=== PATIENT | female | born 1930 | race Caucasian/White ===

== ENCOUNTER 2016-10-26 15:12 | Emergency (ER) | payer MEDICARE, OTHER ==
--- NOTE | ~2016-10-26 | CT4 ---
[facility] A Service of [facility] RADIOLOGY TEXT RESULTS PATIENT: DESI DEVLIN LOCATION: SED : 32 UNIT #: [id number] AGE: [address]: Dalton Chaudhry MD SEX: F ORDER DR: [id number] [address] [address] [id number] E MR#: [id number] Acc #: [id number] NAME: DEIS DEVLIN : 1930 SEX: F STUDY DATE/TIME: 10/26/2016 16:51 UNIT: SED ROOM: STUDY DESCRIPTION: CT Abd and Pelv Wo Cont Attending Physician: Dalton Chaudhry M.D. Ordering Physician: Dalton Chaudhry M.D. Primary Care Physician: Myron Thorpe M.D. MEDICAL IMAGING REPORT This report is preliminary unless electronic signature is present. EXAM CT abdomen and pelvis without contrast HISTORY Back pain and low abdomen pain today after lifting injury. TECHNIQUE This CT exam was performed with one or more of the following radiation dose reduction techniques: automatic exposure control, adjustment of mA and/or kV according to patient size, and iterative reconstruction. FINDINGS CT abdomen: The liver, gallbladder, spleen, pancreas, kidneys, and adrenal glands are unremarkable. No renal calculi. No hydronephrosis. No bowel dilatation. No ascites or adenopathy. Mild chronic compression fractures of the superior endplates of T12 and moderate compression fracture of the superior endplate of L3 are stable compared to CT 05/17/2010. Mild compression fracture of the superior endplate of L2 is of uncertain age. Mild chronic compression fracture of the superior endplate of L4 is unchanged. Normal caliber abdominal aorta. CT pelvis: Old healed fractures right pubic bone and right superior inferior pubic rami. The uterus and adnexa are unremarkable. Small rectocele. IMPRESSION 1. Mild compression fracture of the superior endplate of L2 is of uncertain age and this could be a recent fracture. There are mild chronic compression fractures of the superior plates of T12 and L4 and moderate chronic compression fracture of the superior endplate of [facility] A Service of [facility] & [facility] RADIOLOGY TEXT RESULTS PATIENT: DESI DEVLIN LOCATION: SED : 32 UNIT #: [id number] AGE: [address]: Dalton Chaudhry MD SEX: F ORDER DR: [id number]. 2. No free fluid or inflammatory stranding in the abdomen or pelvis. 3. Old healed fracture deformities right pubic bone and right superior and inferior pubic rami. Dictated by... Chetan Remy M.D. THIS IS AN ELECTRONICALLY VERIFIED REPORT Chetan Remy M.D. at 10/26/2016 11:13 PM DFL/to TD: 10/26/2016 21:15 JOB #: [id number] MEDICAL IMAGING REPORT Page 1 of 1
[~2016-10-26 15:12] MED LIST: ADVAIR 250-501 EAC1; AIRGO ROLLING W1 PKT MC; ALLEGRA ALLERG180 MG PO; ASPIRIN PO; AUGMENTIN PO; CALTRATE 600+D PO; CENTRUM SILVER PO; COMBIVENT U/D3 ML; COREG PO; DARVOCET-N 1001 TAB PO; EYE DROPS; GABAPENTIN300 MG; HYDROCHLOROTH12.5 M1; HYDROXYZINE HCL25 M1; INDOCIN SR75 MG PO; LEVAQUIN PO; LEVO-T25 MCG; LOPRESSOR PO; METFORMIN HCL500 M1; MIRTAZAPINE45 M1; MOTRIN400 MG PO; MULTI VITAMIN1 EACH PO; MULTI-VIT/MIN P1 TAB PO; OCEAN45 ML; OYSTER CALCIUM500 MG; PRAVACHOL; PRESERVISION A1 EAC3 PO; PREVACID N1 COMB.PKG PO; PREVACID PO; PRILOSEC PO; PRILOSEC10 M1; PRILOSEC20 MG PO; PROBIOTIC1 EAC1; PROTONIX PO; RISPERDAL3 MG; SERTRALINE HCL50 MG; TOPROL XL PO; ULTRAM PO; VITAMINS A & D1 EACH
[2016-10-26 16:28] LABS: URINE SOURCE CLEAN CATCH
[2016-10-26 16:30] LABS: BASOPHIL% 0.6 % (0-2.5); EOSINOPHIL% 0.4 % (0.0-7.0); HEMATOCRIT 43.7 % (35.0-45.0); HEMOGLOBIN 14.7 gm/dL (12.0-16.0); LYMPHOCYTE# 0.6 X10e3 (1.0-3.5); LYMPHOCYTE% 8.7 % (17.0-45.0); MEAN CELL VOLUME 91.8 FL (83-96); MEAN CORPUSCULAR HEMOGLOBIN 30.8 PG (28-34); MEAN CORPUSCULAR HGB CONC 33.6 g/dL (30-36); MEAN PLATELET VOLUME 7.7 FL (6.5-11.5); MONOCYTE# 0.4 X10e3 (0-1.0); NEUTROPHIL% 84.3 % (40-75); PLATELET COUNT 144 X10e3 (140-420); RED BLOOD COUNT 4.76 X10e (3.90-5.30); WHITE BLOOD COUNT 7.1 X10e3 (4.0-10.5)
[2016-10-26 16:32] LABS: URINE APPEARANCE CLEAR; URINE BILIRUBIN NEG (NEG); URINE BLOOD NEG (NEG); URINE COLOR YELLOW; URINE GLUCOSE NEG (NORM); URINE KETONE NEG (NEG); URINE LEUKOCYTE ESTERASE NEG (NEG); URINE NITRATE NEG (NEG); URINE PROTEIN NEG (NEG)
[2016-10-26 16:42] LABS: MICRO INDICATED? NO
[2016-10-26 16:44] LABS: DIFF IND NO
[2016-10-26 17:23] LABS: ALBUMIN SERUM 4.3 g/dL (3.5-5.0); BILIRUBIN, DIRECT 0.1 mg/dL (0.0-0.2); BILIRUBIN,INDIRECT 0.4 mg/dL (0.0-0.9); BILIRUBIN,TOTAL 0.5 mg/dL (0.2-2.0); BUN/CREATININE RATIO 27.14; CREATININE SERUM 0.7 mg/dL (0.6-1.4); GLOM FILT RATE Estimated 80.1 mL/min (>60); POTASSIUM 3.8 mmol/L (3.5-5.1); PROTEIN TOTAL SERUM 7.5 g/dL (6.0-8.3)
== END 2016-10-26 17:44 | disposition home or self-care (01) ==
LOC: SED 15:12
PROVIDERS: Emergency Medicine
DX: S32.029A Unspecified fracture of second lumbar vertebra, initial encounter for closed fracture (principal); K21.9 Gastro-esophageal reflux disease without esophagitis; Z79.899 Other long term (current) drug therapy; X50.9XXA Other and unspecified overexertion or strenuous movements or postures, initial encounter
CPT/HCPCS: 36415; 74176; 80048; 80076; 81003; 85025; 99284

== ENCOUNTER 2016-10-30 00:07 | Emergency (ER) | payer MEDICARE, OTHER ==
--- NOTE | ~2016-10-30 | CR63 ---
[facility]. [facility] A Service of [facility] RADIOLOGY TEXT RESULTS PATIENT: DESI DEVLIN LOCATION: SED : 32 UNIT #: [id number] AGE: [address]: Jose Luis Wynne DO SEX: F ORDER DR: [id number] [place] [id number] E MR#: [id number] Acc #: [id number] NAME: DESI DEVLIN : 1930 SEX: F STUDY DATE/TIME: 10/30/2016 0:37 UNIT: SED ROOM: STUDY DESCRIPTION: CR Chest 2 View Attending Physician: Jose Luis Wynne Ordering Physician: Jose Luis Wynne Primary Care Physician: Myron Thorpe M.D. MEDICAL IMAGING REPORT This report is preliminary unless electronic signature is present. EXAM Two-view chest INDICATION Cough. Aspiration. FINDINGS PA and lateral views of the chest compared to 03/05/2016. The heart is mildly enlarged, unchanged. There is background COPD. There is minimal airspace opacity in the right lower lobe. No pleural effusion. There is a compression deformity in the lower thoracic spine. This appears to be unchanged from prior studies. IMPRESSION 1. New right lower lobe airspace opacity may represent the aspirated material. 2. COPD. Dictated by... Syd Michael M.D. THIS IS AN ELECTRONICALLY VERIFIED REPORT Syd Michael M.D. at 10/30/2016 2:13 AM TALIB/anthony TD: 10/30/2016 01:21 JOB #: [id number] MEDICAL IMAGING REPORT Page 1 of 1
== END 2016-10-30 02:00 | disposition home or self-care (01) ==
LOC: SED 00:07
DX: J69.0 Pneumonitis due to inhalation of food and vomit (principal); Z79.899 Other long term (current) drug therapy
CPT/HCPCS: 71020; 99283

== ENCOUNTER 2016-11-26 16:06 | Inpatient (IN) | payer MEDICARE, OTHER ==
--- NOTE | ~2016-11-26 | A ---
[facility] Nutrition Therapy DATE: 11/27/16 Patient: DESI DEVLIN Physician: MALATHI Address: [address] [place] [address] Room/Bed: [address] [place] [address], Zip: [place] [address] Admit Date: 11/26/16 Date of : 32 Height: 5 4 Weight: 96 43.6 NUTRITIONAL ASSESSMENT: REASON: LOW BMI (16.8) PATIENT ADMITTED FOR L-PELVIC FX POST FALL PMH: MACULAR DEGENERATION, GERD, HTN, DYSPHAGIA Anthropometrics: HT: 64:, WT: 98#, BMI: 16.8 Labs: 11/27/16- GLU: 126, ALL OTHER NUTRITIONAL LABS WNL Meds: COLACE, OS-LEONARD, MVI, ZOFRAN, MORPHINE I/O & Bowel function: --/625 LBM 11/25/16 Skin Integrity: INTACT, NO EDEMA, SOME BRUISING TO BUTTOCK Estimated Nutrition Needs: INCREASED 2' TO LOW BMI, DECREASED APPETITE Assessment: PATIENT IS AN 86 Y/O FEMALE ADMITTED FOR L-PELVIC FX POST FALL. PATIENT WAS ADMITED IN 02/2016 FOR R-PELVIC FX POST FALL. PATIENT LIVES AT HOME WITH HER GRANDSON. FAMILY WAS AT BEDSIDE DURING VISIT. FAMILY STATED PATIENT HAS A POOR APPETITE AND HAS HAD RECENT WEIGHT LOSS. WEIGHT HX PER [employer] SHOWS A STEADY WEIGHT LOSS OF ~30# OVER THE LAST 8 YEARS. PATIENT DOES HAVE SOME DYSPHAGIA AND KNOWS WHAT SHE CAN AND CANNOT TOLERATE (SOME MEATS AND BREAD), PATIENT DRINKS 1-2 BOOST SUPPLEMENTS AT HOME. PATIENT AND FAMILY DOES NOT WANT ANY ENTERAL NUTRITION INTERVENTION OR SWALLOW STUDIES COMPLETED ATT. PATIENT DID NOT HAVE ANY NUTRITION EDUCATION QUESTIONS ATT. Dx: INADEQUATE NUTRIENT INTAKE R/T CURRENT CONDITION AEB LOW BMI, WEIGHT LOSS Intervention: LIBERALIZE DIET TO REGULAR TO INCREASE PO INTAKES, SUPPLEMENTATION, MEDS/FLUIDS PER MD Monitoring, Evaluation and Goals: 1. ADEQUATE PO INTAKES >50-75% CONSUMPTION OF MEALS 2. PREVENT, CORRECT MICRO/MACRO NUTRIENT DEFICIENCIES 3. WEIGHT; PROMOTE A STEADY WEIGHT GAIN TOWARDS A HEALTHY BMI OF 19-25 AND PREVENT FURTHER LOSS MONITOR: WEIGHTS, LABS, PO/FLUID INTAKES, I/Os [facility] Nutrition Therapy DATE: 11/27/16 Patient: DESI DEVLIN Physician: MALATHI Address: [address] [place] [address] Room/Bed: [facility] [place] [address], Zip: [place] [address] Admit Date: 11/26/16 Date of : 32 Height: 5 4 Weight: 96 43.6 Recommendations: 1. LIBERALIZE DIET TO REGULAR TO PROMOTE INCREASED PO INTAKES. SEND STRAWBERRY OR VANILLA ENSURE TID WITH MEALS AND ANY FLAVOR OF MAGIC CUPS BID WITH LUNCH AND DINNER 2. ENCORUAGE ADEQUATE PO, FLUID, AND SUPPLEMENT INTAKES 3. MAY RECOMMEND AN APPETITE STIMULANT D/T PATIENT'S DECREASED APPETITE AND LOW BODY WEIGHT. PATIENT AND FAMILY DOES NOT WANT ANY ENTERAL NUTRITION INTERVENTION ATT. RD TO F/U PER PROTOCOL AND PRN R/T PATIENT MODERATELY COMPROMISED Respectfully, BRENDAN CARO, RD, LD Food and Nutrition[facility] Services [facility] cc: client file
--- NOTE | ~2016-11-26 | HP ---
Unit #: [id number] #: [id number] Patient: DESI DEVLIN [id number] [address] [place], [place] [address] [id number] I MR#: [id number] NAME: DESI DEVLIN ROOM: 316 Age: 86 Sex: F Admission Date: 11/26/2016 : 1930 Attending Physician: Carmen Garcia M.D. Primary Care Physician: Myron Thorpe M.D. HISTORY AND PHYSICAL CHIEF COMPLAINT Left pelvic fracture. HISTORY This pleasant 86-year-old female with macular degeneration, was transferred from [facility] emergency department for a left pelvic fracture. The patient states that she was standing in her kitchen this afternoon when she fell. She thinks she possibly lost her balance but is unsure, no loss of consciousness. Developed pain in the left hip and left back/buttock region. She was taken to [facility] emergency department where x-rays and CT scan show minimally displaced inferior ramus fracture and superior ramus fracture. Multiple old lumbar compression fractures noted. She was treated with a dose of [place]. We were asked to admit the patient. While in the ER, the patient's daughter noticed that the patient had a lower facial droop. On examination, she has a minimal right lower facial droop. She denies any symptoms of unilateral weakness. She has no pronator drift, and she has equal strength throughout except for left leg because of left hip pain. Head CT showed nothing acute, only bilateral lacunar infarcts, which appear to be old and small vessel ischemic disease. The patient was last admitted 02/2016 after falling, resulting in a right pelvic fracture, required nursing with rehab afterwards. PAST MEDICAL HISTORY 1. Right pelvic fracture following a fall 02/2016. 2. GERD. 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 3. Previous history of hypertension. 4. Macular degeneration. 5. Sinus tachycardia. 6. History of orthostatic hypotension. 7. Status post surgery for repair of Zenker diverticulum. 8. Esophageal strictures requiring dilation. 9. Appendectomy. ALLERGIES No known drug allergies. HOME MEDICATIONS Probiotic daily; Inna 180 mg daily; PreserVision two tablets b.i.d.; calcium plus D 600 mg daily; multivitamin daily; Prevacid daily and I believe [place], which may be a mistake. FAMILY HISTORY Noncontributory given patient's age. Unit #: [id number] #: [id number] Patient: DESI DEVLIN SOCIAL HISTORY The patient lives with her grandson. Is a lifelong nonsmoker and does not drink alcohol. REVIEW OF SYSTEMS Notable for possible fall today with left hip pain, acid reflux, Zenker diverticulum, macular degeneration, above mentioned surgeries. All other systems were reviewed and are otherwise negative. PHYSICAL EXAMINATION GENERAL: Pleasant, thin, 86-year-old female who looks to be mildly uncomfortable. VITAL SIGNS: Temperature 98.1, pulse 88, respirations 16, blood pressure 116/70, O2 saturations 100%. Weight is 98 pounds with BMI of 16. HEENT: Eyes - PERRLA. Extraocular muscles are intact. Pharynx is benign with somewhat poor dentition. Slight right lower facial droop. NECK: Supple without adenopathy or thyromegaly. CHEST: Clear on patient's supine exam. CARDIAC: Normal S1 and S2 without murmur. ABDOMEN: Bowel sounds are present. No hepatosplenomegaly, tenderness, or masses. EXTREMITIES: Without edema. Pedal pulses are present. NEUROLOGIC: Patient is awake, alert, and oriented. Cranial nerves are intact, except that she does have some visual problems, a tiny right lower facial droop. She has +5/5 strength throughout and negative pronator drift. Her left leg is a little bit weak because movement of the left leg causes left hip pain. DIAGNOSTIC STUDIES ADMISSION LABS: Hematocrit is 41.9, normal white count, platelet count is 113, has been low once in the past as well. SMA 7 is normal. Urinalysis is negative. IMAGING STUDIES: Head CT - old bilateral lacunar infarcts and small vessel ischemic disease but nothing acute. X-ray of the left hip shows mild superior and suspected inferior ramus fracture. Old healed right-sided pelvic fracture. CT scan of the abdomen and pelvis inferior ramus fracture and superior ramus fracture. Mild thickening of the left obturator muscle likely secondary to edema and hemorrhage, but no hematoma. Multiple old lumbar compression fractures. ASSESSMENT 1. Presumed fall with a left pelvic fracture. 2. Mild thrombocytopenia. 3. Thickening of the left obturator muscle likely related to a small amount of bleeding. 4. Mild right lower facial droop. The rest of the neurologic examination is okay and head CT shows no acute disease. 5. Macular degeneration. 6. GERD and Zenker diverticulum. PLANS 1. Pain control. 2. Cardiac enzymes and EKG. Unit #: [id number] #: [id number] Patient: DESI DEVLIN 3. Orthopedic surgeon to see. 4. DVT prophylaxis. 5. 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 1. Dictated by Lissett Esteban M.D. AML/ts TD: 11/27/2016 07:07 JOB #: [id number] HISTORY AND PHYSICAL Page 1 of 1 X Lissett Esteban MD HISTORY AND PHYSICAL
--- NOTE | ~2016-11-26 | DS ---
Unit #: [id number] #: [id number] Patient: DESI JEFF [id number] [address] [place], [place] [address] [id number] I MR#: [id number] NAME: DESI JEFF ROOM: 316 Age: 86 Sex: F Admission Date: 11/26/2016 : 1930 Discharge Date: 11/30/2016 Attending Physician: Carmen Garcia M.D. Primary Care Physician: Myron Thorpe M.D. DISCHARGE SUMMARY PRINCIPAL DIAGNOSES 1. Left superior and inferior pubic ramus fracture, nonoperative. 2. Status post mechanical fall. 3. Pancytopenia with discharge white blood cell count of 3.2, hemoglobin 11.3 and platelet count 114,000. 4. Osteoporosis. 5. Macular degeneration. 6. Right facial droop without evidence of stroke. CONSULTANTS Dr. Anaya, orthopedic surgery. DIAGNOSTIC DATA IMAGING: X-ray of the left hip on 11/26/2016 with a mildly comminuted and displaced left superior pubic ramus fracture and left inferior pubic ramus fracture. Healed right superior and inferior pubic ramus fracture also noted. CT scan of the abdomen and pelvis without contrast on 11/26/2016 with no intraabdominal or pelvic pathology. Minimally displaced left superior and inferior pubic ramus fractures noted. Thickening of the left obturator internus muscle, consistent with edema and hemorrhage, but no sizeable hematoma. CT of the head without contrast on 11/26/2016 with no acute intracranial abnormality. Bilateral lacunar infarcts and diffuse periventricular changes noted. MRI of the brain without contrast on 11/27/2016, again with no acute findings. Generalized volume loss and sequelae of small vessel disease noted. CLINICAL HISTORY/HOSPITAL COURSE Ms. Jeff is a very nice 86-year-old female who presented to the emergency department after the abrupt onset of left pelvic pain after falling at home. Please refer to history and physical for further details. Imaging revealed pelvic fracture and the patient was subsequently admitted. The patient was seen in consultation by orthopedics, who did not feel any surgical intervention was warranted. We will continue with pain control and increasing physical therapy as tolerated. Upon presentation, the patient was also found to have questionable right Unit #: [id number] #: [id number] Patient: DESI JEFF facial droop by her daughter. Otherwise, her neurologic examination was unremarkable and CT of the head was unremarkable. MRI of the brain was done and ruled out any sort of acute stroke process. No further stroke workup was initiated. The patient will be discharged to rehab today. DISCHARGE CONDITION Stable. DISPOSITION Discharge to rehab. DISCHARGE MEDICATIONS 1. Lactobacillus acidophilus capsule 1 daily. 2. Inna 180 mg p.o. daily p.r.n. allergies. 3. Colace 100 mg b.i.d. 4. PreserVision tablet, 2 tablets b.i.d. 5. Daily multivitamin. 6. [place] 5/325 mg 1 tablet p.o. q.6 h. scheduled. 7. Os-Ibrahima 500 plus D 1 daily. 8. Pantoprazole 30 mg daily. DIET The patient can follow a regular diet as she can tolerate. ACTIVITY She is weightbearing as tolerated with a walker on both legs. FOLLOWUP 1. The patient will follow up with Dr. Anaya in approximately two weeks. 2. She will follow up with her primary care physician, Dr. Thorpe, upon discharge from rehab. Dictated by... Carmen Garcia M.D. STEPHANIE/adrian TD: 11/30/2016 14:05 JOB #: [id number] DISCHARGE SUMMARY Page 1 of 1 X Carmen Garcia MD DISCHARGE SUMMARY
--- NOTE | ~2016-11-26 | CR150 ---
[facility] A Service of [facility] RADIOLOGY TEXT RESULTS PATIENT: DESI DEVLIN LOCATION: [facility] 316-01 : 32 UNIT #: [id number] AGE: [address]: Carmen Garcia MD SEX: F ORDER DR: [id number] [address] [address] [id number] E MR#: [id number] Acc #: [id number] NAME: DESI DEVLIN : 1930 SEX: F STUDY DATE/TIME: 11/26/2016 17:18 UNIT: SED ROOM: STUDY DESCRIPTION: CR Hip Min 2 Views Lt Attending Physician: Laure Olguin Ordering Physician: Laure Olguin Primary Care Physician: Myron Thorpe M.D. MEDICAL IMAGING REPORT This report is preliminary unless electronic signature is present. EXAM Left hip and pelvis HISTORY Fell on left side on kitchen floor today, pain. COMPARISON 03/01/2016 FINDINGS Examination demonstrates mildly comminuted and displaced left superior pubic ramus fracture. There are old fracture deformities of the right superior and inferior pubic ramus. Probable fracture of the left inferior pubic ramus. The left hip and left proximal femur and hip joint are unremarkable. IMPRESSION 1. Mildly comminuted and displaced left superior pubic ramus fracture and a suspected left inferior pubic ramus fracture. 2. Old healed right superior and inferior pubic ramus fractures which were noted acutely in February 2016. 3. Left proximal femur and hip unremarkable. Dictated by... Adelina Tamez M.D. THIS IS AN ELECTRONICALLY VERIFIED REPORT Adelina Tamez M.D. at 11/27/2016 10:06 AM DILIP/fran TD: 11/26/2016 23:34 [facility] A Service [facility] RADIOLOGY TEXT RESULTS PATIENT: DESI DEVLIN LOCATION: [facility] 316-01 : 32 UNIT #: [id number] AGE: [address]: Carmen Garcia MD SEX: F ORDER DR: JOB #: [id number] MEDICAL IMAGING REPORT Page 1 of 1
--- NOTE | ~2016-11-26 | CT71 ---
[facility] A Service of [facility] RADIOLOGY TEXT RESULTS PATIENT: DESI DEVLIN LOCATION: [facility] 316-01 : 32 UNIT #: [id number] AGE: [address]: Carmen Garcia MD SEX: F ORDER DR: [id number] [facility] [address]. [place], [place] [address] [id number] I MR#: [id number] Acc #: [id number] NAME: DESI DEVLIN : 1930 SEX: F STUDY DATE/TIME: 11/26/2016 21:29 UNIT: [address] ROOM: [facility] STUDY DESCRIPTION: CT Head Wo Contrast Attending Physician: Vita Resendiz M.D. Ordering Physician: Janina Gutiérrez M.D. Primary Care Physician: Myron Thorpe M.D. MEDICAL IMAGING REPORT This report is preliminary unless electronic signature is present EXAM Noncontrast head CT HISTORY Status post fall, complains of dizziness. Facial droop per ER physician. This CT exam was performed with one or more of the following radiation dose reduction techniques: automatic exposure control, adjustment of mA and/or kV according to patient size, and iterative reconstruction. FINDINGS Axial noncontrast imaging brain demonstrates generalized atrophy. There are multiple lacunar infarcts to include the left basal ganglia and right basal ganglia as well as diffuse periventricular white matter changes most likely reflecting chronic microvascular disease. No hemorrhage. No mass effect or midline shift. Bony calvaria, skull base, mastoids and sinuses unremarkable. Small amount of right frontal scalp soft tissue swelling. IMPRESSION 1. No acute intracranial abnormality identified. 2. Bilateral lacunar infarcts as well as diffuse periventricular changes most likely reflecting chronic microvascular disease. Dictated by... Adelina Tamez M.D. THIS IS AN ELECTRONICALLY VERIFIED REPORT Adelina Tamez M.D. at 11/27/2016 7:05 PM DILIP/anthony TD: 11/27/2016 05:06 [facility] A Service of [facility] RADIOLOGY TEXT RESULTS PATIENT: DESI DEVLIN LOCATION: [facility] 316-01 : 32 UNIT #: [id number] AGE: [address]: Carmen Garcia MD SEX: F ORDER DR: JOB #: [id number] MEDICAL IMAGING REPORT Page 1 of 1 COPY
--- NOTE | ~2016-11-26 | EKG ---
PATIENT: DESI DEVLIN UNIT #: [id number] Ventricular Rate: 99 BPM Atrial Rate: 99 BPM P-R Interval: 156 ms QRS Duration: 112 ms Q-T Interval: 366 ms QTC Calculation(Bezet): 469 ms P Braggadocio: 83 degrees Calculated R Braggadocio: -56 degrees Calculated T Braggadocio: 44 degrees Diagnosis Line: Sinus rhythm with Premature atrial complexes and Diagnosis Line: Premature ventricular complexes Diagnosis Line: Possible Left atrial enlargement Diagnosis Line: Incomplete right bundle branch block Diagnosis Line: Left anterior fascicular block Diagnosis Line: Abnormal ECG Diagnosis Line: When compared with ECG of 01-MAR-2016 23:40, Diagnosis Line: Premature ventricular complexes are now Present Diagnosis Line: Confirmed by ANGIE CHOUDHARY MD ([id number]) on Diagnosis Line: 11/27/2016 6:55:05 AM INTERPRETING : ANDRÉS
--- NOTE | ~2016-11-26 | MR18 ---
[facility] A Service of [facility] RADIOLOGY TEXT RESULTS PATIENT: DESI DEVLIN LOCATION: [facility] 316 : 32 UNIT #: [id number] AGE: [address]: Carmen Garcia MD SEX: F ORDER DR: [id number] [place] [address]. [place], [place] [address] [id number] I MR#: [id number] Acc #: [id number] NAME: DESI DEVLIN : 1930 SEX: F STUDY DATE/TIME: 11/27/2016 23:58 UNIT: [address] ROOM: [address] [place] [address] DESCRIPTION: MR Brain Wo Contrast Attending Physician: Carmen Garcia M.D. Ordering Physician: Carmen Garcia M.D. Primary Care Physician: Myron Thorpe M.D. MRI CENTER REPORT This report is preliminary unless electronic signature is present. EXAM MRI brain without contrast INDICATION Right facial droop since a fall on 11/26/2016. Dizziness since fall on 11/26/2016. PROCEDURE Multiplanar, multisequence MR imaging of the brain without contrast. COMPARISON Head CT, 11/26/2016 FINDINGS Diffusion weighted imaging shows no evidence for acute or early subacute infarct. There is no acute hemorrhage, abnormal mass effect, extraaxial collection or hydrocephalus. Tpgr-vv-deehlshl generalized volume loss. Moderate to moderately severe sequela of chronic small vessel ischemic change. Normal flow voids in the intracranial vessels. There is opacification of the right maxillary sinus. IMPRESSION 1. No acute findings. 2. Generalized volume loss and sequela of chronic small vessel ischemic change. 3. Opacification, possibly chronic right maxillary sinus. Dictated by... Virgil Valladares M.D. THIS IS AN ELECTRONICALLY VERIFIED REPORT Virgil Valladares M.D. at 11/28/2016 10:08 PM FRANCIA/madelyn [facility] A Service of [facility] RADIOLOGY TEXT RESULTS PATIENT: DESI DEVLIN LOCATION: [facility] 316 : 32 UNIT #: [id number] AGE: [address]: Carmen Garcia MD SEX: F ORDER DR: TD: 11/28/2016 10:11 JOB #: [id number] MRI CENTER REPORT Page 1 of 1 COPY
--- NOTE | ~2016-11-26 | CT4 ---
STS. [facility] A Service of [facility] RADIOLOGY TEXT RESULTS PATIENT: DESI DEVLIN LOCATION: C3A 316-01 : 32 UNIT #: [id number] AGE: [address]: Carmen Garcia MD SEX: F ORDER DR: [id number] [address] [address] [id number] E MR#: [id number] Acc #: [id number] NAME: DESI DEVLIN : 1930 SEX: F STUDY DATE/TIME: 11/26/2016 18:16 UNIT: SED ROOM: STUDY DESCRIPTION: CT Abd and Pelv Wo Cont Attending Physician: Laure Olguin Ordering Physician: Physician Non-Staff Primary Care Physician: Myron Thorpe M.D. MEDICAL IMAGING REPORT This report is preliminary unless electronic signature is present. EXAM CT abdomen and pelvis without contrast HISTORY Fell on floor today, left lower quadrant pain. COMPARISON CT abdomen and pelvis 10/26/[address] exam was performed with one or more of the following radiation dose reduction techniques: automatic exposure control, adjustment of mA and/or kV according to patient size, and iterative reconstruction. Axial images were performed through the abdomen and pelvis with and without contrast. Multiplanar reconstructed images reviewed at a workstation. FINDINGS Lung bases unremarkable. Liver, spleen and gallbladder unremarkable. Pancreas and poorly visualized due to fatty infiltration and lack of intraabdominal fat and lack of contrast. The kidneys and adrenal glands unremarkable. No free air or free fluid. The visualized GI tract unremarkable except for moderate amount of colonic stool. Pelvis: Bladder and uterus unremarkable. There is a mildly comminuted minimally-displaced left superior pubic ramus fracture as well as a minimally displaced left inferior pubic ramus fracture. There is an old healed right superior pubic ramus fracture. Old compression fractures are noted L2-L3 and L4 and also at T11 and T12. There is mild thickening of the left obturator internus muscle that may represent a small pelvic sidewall hematoma, but no sizeable hematoma or STS. [facility] A Service of [facility] RADIOLOGY TEXT RESULTS PATIENT: DESI DEVLIN LOCATION: C3A 316-01 : 32 UNIT #: [id number] AGE: [address]: Carmen Garcia MD SEX: F ORDER DR: fluid collection identified. IMPRESSION 1. No acute intraabdominal or pelvic pathology identified. 2. Minimally-displaced left superior left inferior pubic ramus fractures which appear acute as well as old healed right superior right inferior pubic ramus fractures and multiple old lumbar spine, compression fractures. 3. Mild thickening of the left obturator internus muscle probably related to some edema and hemorrhage but no sizeable hematoma identified. Dictated by... Adelina Tamez M.D. THIS IS AN ELECTRONICALLY VERIFIED REPORT Adelina Tamez M.D. at 11/27/2016 10:08 AM Ligia TD: 11/27/2016 00:05 JOB #: [id number] MEDICAL IMAGING REPORT Page 1 of 1
--- NOTE | ~2016-11-26 | CO ---
Unit #: [id number] #: [id number] Patient: DESI JEFF [id number] [facility]. [place], [place] [address] [id number] MR#: [id number] NAME: DESI JEFF ROOM: 316 Age: 86 Sex: F Admission Date: 11/26/2016 : 1930 Attending Physician: Carmen Garcia M.D. Primary Care Physician: Myron Thorpe M.D. Consultation Date: 11/27/2016 CONSULTATION REPORT HISTORY OF PRESENT ILLNESS Ms. Jeff is an 86-year-old lady who was transferred to the hospital from [facility] ER last night with a left-sided pelvic fracture. Evidently, she reports she was standing in her kitchen, was getting ready to put something into the garbage and all of sudden she was on the floor. She does not remember blacking out. She had difficult time getting up and so she was taken to the [facility] ER and x-rays and CT showed a minimally displaced inferior pubic ramus fracture and superior pubic ramus fracture on the left side. She has had a right-sided pelvis fracture in the past that we have treated. The patient reports today that her right leg moves well. She has difficulty with pain on attempting to move her left leg. She is admitted for treatment. There is also a question of whether or not she had a small stroke or TIA. PAST MEDICAL HISTORY Significant as mentioned for her right pelvis fracture in 02/2016. She has reflux, macular degeneration, sinus tachycardia, and esophageal stricture dilatation as well as an appendectomy and has Zenker diverticulum. ALLERGIES She has no known allergies. SOCIAL HISTORY She lives at home with her grandson. She is a nonsmoker and denies use of alcohol. MEDICATIONS Include Prevacid, calcium, PreserVision, Inna, probiotic, and [place]. REVIEW OF SYSTEMS She denies headaches. Denies blurred vision. Denies shortness of breath. Denies chest pain. No abdominal complaints of nausea, vomiting, or diarrhea. She denies flank plain or burning on urination. Her only orthopedic complaint is painful to move her left hip. PHYSICAL EXAMINATION GENERAL: Today, reveals that she is alert, awake, and oriented x3, resting comfortably in bed. VITAL SIGNS: She is afebrile, her pulse is 81, blood pressure is 122/71. ORTHOPEDIC: Reveals she moves her upper extremities well. Right lower extremity moves well. Her left hip any attempted motion including log roll are painful. NEUROVASCULAR: Intact. Unit #: [id number] #: [id number] Patient: DESI JEFF ESDRAS I have reviewed her x-rays and she has a minimally displaced pelvis fracture on the left side. PLAN The plan will be to treat her with physical therapy and walker. Weightbearing as tolerated. She will be unable to go home. She has been in the fpc unit here at [facility] on the third floor, so we will consult them. Dictated by... Jack Anaya M.D. REKHA/neal TD: 11/28/2016 00:15 JOB #: [id number] CONSULTATION REPORT Page 1 of 1 X Jack Anaya MD X CONSULTATION REPORT
[2016-11-26] MEDS ORDERED: NORCO 7.5 PO (16:22)
[2016-11-26] MEDS ORDERED: LANSOPRAZOLE PO (16:22)
[2016-11-26 18:51] LABS: BASOPHIL% 0.4 % (0-2.5); EOSINOPHIL% 0.7 % (0.0-7.0); HEMATOCRIT 41.9 % (35.0-45.0); LYMPHOCYTE# 0.5 X10e3 (1.0-3.5); LYMPHOCYTE% 9.1 % (17.0-45.0); MEAN CELL VOLUME 91.5 FL (83-96); MEAN CORPUSCULAR HEMOGLOBIN 30.5 PG (28-34); MEAN CORPUSCULAR HGB CONC 33.4 g/dL (30-36); MEAN PLATELET VOLUME 7.7 FL (6.5-11.5); MONOCYTE# 0.5 X10e3 (0-1.0); MONOCYTE% 9.4 % (3.0-12.0); NEUTROPHIL# 4.2 X10e3 (1.5-7.1); NEUTROPHIL% 80.4 % (40-75); PLATELET COUNT 113 X10e3 (140-420); RED BLOOD COUNT 4.58 X10e (3.90-5.30); RED CELL DISTRIBUTION WIDTH 13.4 % (11.0-15.5); WHITE BLOOD COUNT 5.3 X10e3 (4.0-10.5)
[2016-11-26 18:54] LABS: DIFF IND NO
[2016-11-26 19:07] LABS: BUN/CREATININE RATIO 18.57; CALCIUM SERUM 9.4 mg/dL (8.4-10.2); CREATININE SERUM 0.7 mg/dL (0.6-1.4); GLOM FILT RATE Estimated 79.6 mL/min (>60); POTASSIUM 3.8 mmol/L (3.5-5.1)
[2016-11-26 19:25] LABS: URINE SOURCE CLEAN CATCH
[2016-11-26 19:27] LABS: MICRO INDICATED? NO; URINE APPEARANCE CLEAR; URINE BILIRUBIN NEG (NEG); URINE BLOOD NEG (NEG); URINE COLOR YELLOW; URINE GLUCOSE NEG (NORM); URINE KETONE NEG (NEG); URINE LEUKOCYTE ESTERASE NEG (NEG); URINE NITRATE NEG (NEG); URINE PROTEIN NEG (NEG); URINE SPECIFIC GRAVITY 1.015 (1.003-1.035); URINE UROBILINOGEN 0.2 MG/DL (NORM)
[2016-11-27 01:34] LABS: HEMATOCRIT 39.6 % (35.0-45.0); HEMOGLOBIN 13.1 gm/dL (12.0-16.0); MEAN CELL VOLUME 91.5 FL (83-96); MEAN CORPUSCULAR HEMOGLOBIN 30.3 PG (28-34); MEAN CORPUSCULAR HGB CONC 33.1 g/dL (30-36); MEAN PLATELET VOLUME 7.5 FL (6.5-11.5); RED BLOOD COUNT 4.32 X10e (3.90-5.30); RED CELL DISTRIBUTION WIDTH 13.7 % (11.0-15.5); WHITE BLOOD COUNT 4.6 X10e3 (4.0-10.5)
[2016-11-27 02:00] LABS: ALBUMIN SERUM 3.6 g/dL (3.5-5.0); CREATININE SERUM 0.6 mg/dL (0.6-1.4); GLOM FILT RATE Estimated 83.7 mL/min (>60); POTASSIUM 3.9 mmol/L (3.5-5.1); PROTEIN TOTAL SERUM 6.8 g/dL (6.0-8.3)
[2016-11-27 02:24] LABS: %MB 7.6 % (0.0-4.0)
[2016-11-29 06:12] LABS: HEMATOCRIT 34.7 % (35.0-45.0); HEMOGLOBIN 11.5 gm/dL (12.0-16.0); MEAN CORPUSCULAR HEMOGLOBIN 30.4 PG (28-34); MEAN CORPUSCULAR HGB CONC 33.1 g/dL (30-36); MEAN PLATELET VOLUME 8.1 FL (6.5-11.5); RED BLOOD COUNT 3.77 X10e (3.90-5.30); RED CELL DISTRIBUTION WIDTH 13.3 % (11.0-15.5); WHITE BLOOD COUNT 3.6 X10e3 (4.0-10.5)
[2016-11-29 06:31] LABS: CREATININE SERUM 0.5 mg/dL (0.6-1.4); GLOM FILT RATE Estimated 88.9 mL/min (>60)
[2016-11-30 06:38] LABS: HEMATOCRIT 33.8 % (35.0-45.0); HEMOGLOBIN 11.3 gm/dL (12.0-16.0); MEAN CELL VOLUME 91.6 FL (83-96); MEAN CORPUSCULAR HEMOGLOBIN 30.7 PG (28-34); MEAN CORPUSCULAR HGB CONC 33.5 g/dL (30-36); MEAN PLATELET VOLUME 8.2 FL (6.5-11.5); RED BLOOD COUNT 3.69 X10e (3.90-5.30); RED CELL DISTRIBUTION WIDTH 13.5 % (11.0-15.5); WHITE BLOOD COUNT 3.2 X10e3 (4.0-10.5)
== END 2016-11-30 15:51 | DRG 536 ==
LOC: SED 16:06 → CEDOF 19:15 → SED 19:17 → C3A PCU 19:17 → CEDOF 19:17 → C3A PCU 22:23 → CEDOF 22:23 → C3A PCU 11-27 06:23
PROVIDERS: Internal Medicine; Physician Assistant
DX: S32.592A Other specified fracture of left pubis, initial encounter for closed fracture (principal); D61.818 Other pancytopenia; Z68.1 Body mass index [BMI] 19.9 or less, adult; M81.0 Age-related osteoporosis without current pathological fracture; H35.30 Unspecified macular degeneration; W01.0XXA Fall on same level from slipping, tripping and stumbling without subsequent striking against object, initial encounter; Y92.010 Kitchen of single-family (private) house as the place of occurrence of the external cause; R29.810 Facial weakness; K21.9 Gastro-esophageal reflux disease without esophagitis; I10 Essential (primary) hypertension; Z90.49 Acquired absence of other specified parts of digestive tract; R00.0 Tachycardia, unspecified; R63.6 Underweight
CPT/HCPCS: 36415; 51702; 70450; 70551; 73502; 74176; 80048; 80053; 81003; 82550; 82553; 84484; 85025; 85027; 93005; 97116; 97161; 97530; 99285; G8978-GP; G8979-GP; G8980-GP; J2060; J2270; J2405

== ENCOUNTER 2017-02-03 02:30 | Emergency (ER) | payer MEDICARE, OTHER ==
[~2017-02-03] VITALS: Ht 165.1 cm; Wt 41.7 kg
--- NOTE | ~2017-02-03 | CT52 ---
[facility] A Service of [facility] RADIOLOGY TEXT RESULTS PATIENT: DESI DEVLIN LOCATION: SED : 32 UNIT #: [id number] AGE: [address]: Dany Carvalho MD SEX: F ORDER DR: [id number] E MR#: [id number] Acc #: [id number] NAME: DESI DEVLIN : 1930 SEX: F STUDY DATE/TIME: 02/03/2017 4:00 UNIT: SED ROOM: STUDY DESCRIPTION: CT Cervical Spine Wo Cont Attending Physician: Dany Carvalho M.D. Ordering Physician: Dany Carvalho M.D. Primary Care Physician: Myron Thorpe M.D. MEDICAL IMAGING REPORT This report is preliminary unless electronic signature is present. EXAM CT cervical spine without contrast HISTORY Neck pain after fall today. This CT exam was performed with one or more of the following radiation dose reduction techniques: automatic exposure control, adjustment of mA and/or kV according to patient size, and iterative reconstruction. FINDINGS CT cervical spine without contrast demonstrates a transverse fracture through the anterior arch of C1, 1 cm to the right of midline, and fractures of the posterior arch of C1 bilaterally, just posterior to the transverse processes, with up to 3 mm separation of each of these fractures. There is also a type 2 odontoid fracture, with small comminuted fracture fragments along the odontoid fracture line, and 3 mm posterior displacement of the odontoid tip relative to the remainder of C2. There is 3 mm anterior subluxation of C4 on C5, likely on a degenerative basis and 2 mm anterior subluxation of C5 on C6 and C6 on C7, also likely degenerative. Moderately severe degenerative facet arthropathy in the upper and lower cervical spine bilaterally. Mild anterior wedging of T1 vertebral body with compression of the superior endplate of T1. This is most likely chronic. Rglh-fc-xallnrcy multilevel bony outlet foraminal narrowing secondary to posterior marginal osteophytes and facet hypertrophy, in the upper and lower cervical spine. IMPRESSION 1. Fractures of the anterior and posterior arch of C1. The anterior C1 arch fracture is 1 cm to the right of midline and the bilateral posterior C1 arch fractures are just posterior to the transverse process sees. There is a 3 mm separation of each of these fracture STS. [facility] A Service of [facility] RADIOLOGY TEXT RESULTS PATIENT: DESI DEVLIN LOCATION: [facility] [place] : 32 UNIT #: [id number] AGE: [address]: Dany Carvalho MD SEX: F ORDER DR: fragments. 2. Type 2 odontoid fracture. 3 mm posterior displacement of the odontoid relative to the remainder of C2. Small comminuted fracture fragments along the odontoid fracture line. 3. Mild compression fracture of the superior endplate of T1 with anterior wedging is most likely chronic. 4. Multilevel degenerative changes in the upper and lower cervical spine primarily involving facet arthropathy. Dictated by... Chetan Remy M.D. THIS IS AN ELECTRONICALLY VERIFIED REPORT Chetan Remy M.D. at 02/03/2017 6:08 AM NICCI/anthony TD: 02/03/2017 04:51 JOB #: [id number] MEDICAL IMAGING REPORT Page 1 of 1
--- NOTE | ~2017-02-03 | CR173 ---
[facility] [place] A Service of [facility] RADIOLOGY TEXT RESULTS PATIENT: DESI DEVLIN LOCATION: SED : 32 UNIT #: [id number] AGE: [address]: Dany Carvalho MD SEX: F ORDER DR: [id number] E MR#: [id number] Acc #: [id number] NAME: DESI DEVLIN : 1930 SEX: F STUDY DATE/TIME: 02/03/2017 3:36 UNIT: SED ROOM: STUDY DESCRIPTION: CR Knee 3 Views Rt Attending Physician: Dany Carvalho M.D. Ordering Physician: Dany Carvalho M.D. Primary Care Physician: Myron Thorpe M.D. MEDICAL IMAGING REPORT This report is preliminary unless electronic signature is present. EXAM Right knee, 3 views. HISTORY Knee pain after a fall today. FINDINGS Three views of the right knee demonstrate moderately severe degenerative joint space narrowing in the medial compartment and in the patellofemoral joint along the lateral facet. Generalized demineralization. No fracture or effusion. IMPRESSION No acute findings. Degenerative changes in the knee, primarily in the medial compartment and patellofemoral compartment. Dictated by... Chetan Remy M.D. THIS IS AN ELECTRONICALLY VERIFIED REPORT Chetan Remy M.D. at 02/03/2017 6:07 AM DFL/chago TD: 02/03/2017 04:32 JOB #: [id number] MEDICAL IMAGING REPORT Page 1 of 1
--- NOTE | ~2017-02-03 | CT71 ---
[facility] A Service [facility] RADIOLOGY TEXT RESULTS PATIENT: DESI DEVLIN LOCATION: SED : 32 UNIT #: [id number] AGE: [address]: Dany Carvalho MD SEX: F ORDER DR: [id number] [id number] E MR#: [id number] Acc #: [id number] NAME: DESI DEVLIN : 1930 SEX: F STUDY DATE/TIME: 02/03/2017 4:00 UNIT: SED ROOM: STUDY DESCRIPTION: CT Head Wo Contrast Attending Physician: Dany Carvalho M.D. Ordering Physician: Dany Carvalho M.D. Primary Care Physician: Myron Thorpe M.D. MEDICAL IMAGING REPORT This report is preliminary unless electronic signature is present. EXAM CT brain without contrast HISTORY Headache and neck pain after fall today. This CT exam was performed with one or more of the following radiation dose reduction techniques: automatic exposure control, adjustment of mA and/or kV according to patient size, and iterative reconstruction. FINDINGS CT brain without contrast demonstrates no intracranial hemorrhage, mass or edema. No midline shift or focal atrophy or extraaxial fluid collection. Moderate chronic ischemic changes in the deep white matter bilaterally. 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 Exam sensitivity is partly limited by motion. Opacification of the partly visualized right maxillary sinus. IMPRESSION No acute findings. Dictated by... Chetan Remy M.D. THIS IS AN ELECTRONICALLY VERIFIED REPORT Chetan Remy M.D. at 02/03/2017 6:07 AM DFPreston/anthony TD: 02/03/2017 04:46 [facility] A Service [facility] RADIOLOGY TEXT RESULTS PATIENT: DESI DEVLIN LOCATION: SED : 32 UNIT #: [id number] AGE: [address]: Dany Carvalho MD SEX: F ORDER DR: SITA #: [id number] MEDICAL IMAGING REPORT Page 1 of 1
--- NOTE | ~2017-02-03 | CR282 ---
[facility] A Service of [facility] & [facility] RADIOLOGY TEXT RESULTS PATIENT: DESI DEVLIN LOCATION: SED : 32 UNIT #: [id number] AGE: [address]: Dany Carvalho MD SEX: F ORDER DR: [id number] [id number] E MR#: [id number] Acc #: [id number] NAME: DESI DEVLIN : 1930 SEX: F STUDY DATE/TIME: 02/03/2017 3:36 UNIT: SED ROOM: STUDY DESCRIPTION: CR Wrist Min 3 View Rt Attending Physician: Dany Carvalho M.D. Ordering Physician: Dany Carvalho M.D. Primary Care Physician: Myron Thorpe M.D. MEDICAL IMAGING REPORT This report is preliminary unless electronic signature is present. EXAM Right wrist 3 views HISTORY Wrist pain after fall today. FINDINGS 3 views of the right wrist demonstrate transverse fracture through the distal radial metaphysis extending into the distal radioulnar joint. Less than 10 degrees posterior angulation of the distal radial fracture fragment and minimal fracture impaction. Mild soft tissue swelling about the wrist. 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 Dictated by... Chetan Remy M.D. THIS IS AN ELECTRONICALLY VERIFIED REPORT Chetan Remy M.D. at 02/03/2017 6:07 AM NICCI/anthony TD: 02/03/2017 04:50 JOB #: [id number] MEDICAL IMAGING REPORT Page 1 of 1
[~2017-02-03 02:30] MED LIST changes: +LANSOPRAZOLE PO; +NORCO 7.5 PO
[2017-02-03] MEDS ORDERED: MIRTAZAPINE7.5 MG PO (02:57)
[2017-02-03] MEDS ORDERED: PROBIOTIC1 EAC1 PO (02:57)
[2017-02-03] MEDS ORDERED: SYSTANE 0.3-0.415 ML OU (02:58)
[2017-02-03] MEDS ORDERED: LANSOPRAZOLE15 MG PO (02:58)
[2017-02-03 04:35] LABS: MICRO INDICATED? YES; URINE APPEARANCE CLEAR; URINE BILIRUBIN NEG (NEG); URINE BLOOD NEG (NEG); URINE COLOR YELLOW; URINE GLUCOSE NEG (NORM); URINE KETONE NEG (NEG); URINE LEUKOCYTE ESTERASE 1+ (NEG); URINE NITRATE NEG (NEG); URINE PH 6.5 (5-8); URINE PROTEIN NEG (NEG); URINE SPECIFIC GRAVITY 1.015 (1.003-1.035); URINE UROBILINOGEN 0.2 MG/DL (NORM)
[2017-02-03 04:40] LABS: CULTURE INDICATED? NO; URINE BACTERIA NEG (NEG); URINE RBC 0-2 /[HPF] (0-2); URINE SQUAMOUS EPITHELIAL CELL FEW /[HPF]; URINE WBC 0-2 /[HPF] (0-5)
[2017-02-03 06:02] LABS: BASOPHIL% 0.6 % (0-2.5); DIFF IND NO; EOSINOPHIL% 0.3 % (0.0-7.0); HEMATOCRIT 39.4 % (35.0-45.0); HEMOGLOBIN 13.1 gm/dL (12.0-16.0); LYMPHOCYTE# 0.5 X10e3 (1.0-3.5); LYMPHOCYTE% 6.7 % (17.0-45.0); MEAN CELL VOLUME 92.8 FL (83-96); MEAN CORPUSCULAR HEMOGLOBIN 30.8 PG (28-34); MEAN CORPUSCULAR HGB CONC 33.2 g/dL (30-36); MEAN PLATELET VOLUME 8.1 FL (6.5-11.5); MONOCYTE# 0.4 X10e3 (0-1.0); MONOCYTE% 6.4 % (3.0-12.0); NEUTROPHIL# 5.9 X10e3 (1.5-7.1); PLATELET COUNT 126 X10e3 (140-420); RED BLOOD COUNT 4.24 X10e (3.90-5.30); RED CELL DISTRIBUTION WIDTH 13.7 % (11.0-15.5); WHITE BLOOD COUNT 6.8 X10e3 (4.0-10.5)
[2017-02-03 06:12] LABS: ALBUMIN SERUM 4.1 g/dL (3.5-5.0); BILIRUBIN, DIRECT 0.1 mg/dL (0.0-0.2); BILIRUBIN,INDIRECT 0.5 mg/dL (0.0-0.9); BILIRUBIN,TOTAL 0.6 mg/dL (0.2-2.0); BUN/CREATININE RATIO 21.66; CALCIUM SERUM 8.9 mg/dL (8.4-10.2); CREATININE SERUM 0.6 mg/dL (0.6-1.4); GLOM FILT RATE Estimated 83.7 mL/min (>60); POTASSIUM 3.5 mmol/L (3.5-5.1); PROTEIN TOTAL SERUM 7.5 g/dL (6.0-8.3)
== END 2017-02-03 06:53 | disposition hospice, home (50) ==
LOC: SED 02:30
PROVIDERS: Emergency Medicine
DX: S12.000A Unspecified displaced fracture of first cervical vertebra, initial encounter for closed fracture (principal); S12.100A Unspecified displaced fracture of second cervical vertebra, initial encounter for closed fracture; S52.501A Unspecified fracture of the lower end of right radius, initial encounter for closed fracture; E03.9 Hypothyroidism, unspecified; K21.9 Gastro-esophageal reflux disease without esophagitis; W19.XXXA Unspecified fall, initial encounter; Y92.009 Unspecified place in unspecified non-institutional (private) residence as the place of occurrence of the external cause
CPT/HCPCS: 29125; 36415; 70450; 72125; 73110; 73562; 80048; 80076; 81003; 85025; 99284